=== PATIENT | male | born 1950 | race Caucasian/White ===

== ENCOUNTER 2022-05-07 05:25 | Inpatient (IN) | payer MEDICARE, BC ==
[2022-05-02 14:52] LABS: BASOPHILS % (AUTO) 0.5 % (0-1); EOSINOPHILS # (AUTO) 0.3 X10'3 (0-0.9); EOSINOPHILS % (AUTO) 3.9 % (0-6); LYMPHOCYTES # (AUTO) 2.3 X10'3 (1.1-4.8); LYMPHOCYTES % (AUTO) 28.9 % (21-51); MEAN CORPUSCULAR HEMOGLOBIN 31.3 PG (27.0-31.0); MEAN CORPUSCULAR HGB CONC 34.1 g/dL (33.0-36.5); MEAN CORPUSCULAR VOLUME 91.8 FL (78-98); MEAN PLATELET VOLUME 8.9 FL (7.4-10.4); MONOCYTES # (AUTO) 0.5 X10'3 (0-0.9); MONOCYTES % (AUTO) 5.9 % (2-12); NEUTROPHILS # (AUTO) 4.9 X10'3 (1.8-7.7); NEUTROPHILS % (AUTO) 60.8 % (42-75); PRE OP HEMATOCRIT 45.2 % (42.0-52.0); PRE OP HEMOGLOBIN 15.4 g/dL (14.0-17.9); PRE OP PLATELET COUNT 202 X10'3 (140-440); RED BLOOD COUNT 4.92 X10'6 (4.70-6.10)
[2022-05-02 15:00] LABS: ALBUMIN 3.6 G/DL (3.4-5.0); ALKALINE PHOSPHATASE 88 IU/L (46-116); BLOOD UREA NITROGEN 15 MG/DL (7-18); BUN/CREATININE RATIO 13.5 (5.4-32.0); CHLORIDE 107 MMOL/L (99-107); CREATININE 1.11 MG/DL (0.60-1.10); PRE OP ALT 27 U/L (30-65); PRE OP ANION GAP 8 (8-16); PRE OP AST 19 U/L (10-37); PRE OP BILIRUB, TOTAL 0.4 MG/DL (0.0-1.0); PRE OP GLUCOSE 117 MG/DL (70-104); PRE OP SODIUM 142 MMOL/L (135-145); TOTAL CARBON DIOXIDE 26.9 MMOL/L (24-32); TOTAL PROTEIN 7.2 G/DL (6.4-8.2); eGFR 65 ML/MIN
[~2022-05-07] VITALS: Ht 177.8 cm; Wt 104.3 kg
[~2022-05-07 05:25] MED LIST: ROSU20TA2 PO; ringers solution, lacted 1,000 ML IV SCH
[2022-05-07] MEDS ORDERED: ceFOXitin 2GM-NS 100mL ADDvant 100 ML IV ONE (05:30)
[2022-05-07] MEDS ORDERED: MALTODEXTRIN/FRUCTOSE 0.68 KCAL/ML LIQUID 296ML BOTTLE PO ONE (05:30)
[2022-05-07] MEDS ORDERED: famotidine 20mg tablet PO ONE (05:30)
[2022-05-07] MEDS ORDERED: metroNIDAZOLE-Flagyl 500mg/NS 100ML IVPB IV ONE (05:30)
--- NOTE | 2022-05-07 05:40 | NUR ---
Pt arrived to [facility] for surgery prep.
[2022-05-07] MEDS ORDERED: LIDOcaine 1% (10mg/ml) 2ml vial ONE (06:10)
[2022-05-07] MEDS ORDERED: heparin, porcine 5000 units/ml vial SQ ONE (06:30)
[2022-05-07] MEDS ORDERED: ipratropium/albuterol 3ml nebule NEB PRN (07:10)
[2022-05-07] MEDS ORDERED: LIDOCAINE 1%/EPI 1:100,000 inj. 10 ML multi-dose vial ONE (07:11)
[2022-05-07] MEDS ORDERED: BUPIVAcaine/PF 2.5 mg/ml (0.25%) 30ml vial ONE (07:11)
[2022-05-07] MEDS ORDERED: tobramycin 40mg/ml inj ONE (07:11)
[2022-05-07] MEDS ORDERED: povidone-iodine 10% ointment 1 APPLIC APPLIC TP ONE (07:11)
[2022-05-07] MEDS ORDERED: fentaNYL /PF 50mcg/ml 5ml ampule ONE (07:18)
[2022-05-07] MEDS ORDERED: rocuronium 10mg/ml inj IV ONE (07:20)
[2022-05-07] MEDS ORDERED: LIDOcaine 2% (20mg/ml) 5ml vial ONE (07:20)
[2022-05-07] MEDS ORDERED: propofol inj 0 ML IV ONE (07:20)
--- NOTE | 2022-05-07 09:00 | NUR ---
Pt was cancelled by Dr. Fairbanks. Pt and family very cooperative and agreeable to plan. IV dc'd, cath in tact upon order to cancel surgery. All belongings w/ pt upon dc to home. pt and family very thankful for their care today and state they will "be back" once they are cleared for surgery. Pt had discussion w/ anesthesia Dr. Clancy and Dr. Fairbanks and agreed that they did not want to proceed w/ surgery untill they have a better idea of pts cardiac risk. Pt and all docs and family all agreeable w/ current plan.
== END 2022-05-07 09:00 | disposition home or self-care (01) | DRG 376 ==
LOC: PAS IN 05:25
PROVIDERS: ADMIT Colon & Rectal Surgery; ATTEND Colon & Rectal Surgery
DX: C18.7 Malignant neoplasm of sigmoid colon (principal); Z53.8 Procedure and treatment not carried out for other reasons
CPT/HCPCS: 36415; 80053; 82948; 85025; 86885; 86900; 86901; 87081; 93005; 94640; 94760; J0694; J1644; J2704; J3010; J3260; J3490; J7120

== ENCOUNTER 2022-09-24 05:20 | Inpatient (IN) | payer MEDICARE, BC ==
[2022-09-18 10:52] LABS: BASOPHILS # (AUTO) 0.1 X10'3 (0-0.2); BASOPHILS % (AUTO) 0.8 % (0-1); EOSINOPHILS # (AUTO) 0.3 X10'3 (0-0.9); EOSINOPHILS % (AUTO) 3.8 % (0-6); LYMPHOCYTES # (AUTO) 2.7 X10'3 (1.1-4.8); LYMPHOCYTES % (AUTO) 29.3 % (21-51); MEAN CORPUSCULAR HEMOGLOBIN 31.4 PG (27.0-31.0); MEAN CORPUSCULAR VOLUME 92.1 FL (78-98); MEAN PLATELET VOLUME 8.4 FL (7.4-10.4); MONOCYTES # (AUTO) 0.6 X10'3 (0-0.9); MONOCYTES % (AUTO) 6.3 % (2-12); NEUTROPHILS # (AUTO) 5.4 X10'3 (1.8-7.7); NEUTROPHILS % (AUTO) 59.8 % (42-75); PRE OP HEMATOCRIT 46.6 % (42.0-52.0); PRE OP HEMOGLOBIN 15.9 g/dL (14.0-17.9); PRE OP PLATELET COUNT 207 X10'3 (140-440); RED BLOOD COUNT 5.06 X10'6 (4.70-6.10); RED CELL DISTRIBUTION WIDTH 14.7 % (11.5-14.5)
[2022-09-18 11:02] LABS: ALBUMIN 3.8 G/DL (3.4-5.0); ALKALINE PHOSPHATASE 95 IU/L (46-116); BLOOD UREA NITROGEN 12 MG/DL (7-18); BUN/CREATININE RATIO 11.5 (5.4-32.0); CALCIUM 8.9 MG/DL (8.5-10.1); CHLORIDE 107 MMOL/L (99-107); CREATININE 1.04 MG/DL (0.60-1.10); PRE OP ALT 22 U/L (30-65); PRE OP ANION GAP 7 (8-16); PRE OP AST 17 U/L (10-37); PRE OP BILIRUB, TOTAL 0.7 MG/DL (0.0-1.0); PRE OP GLUCOSE 105 MG/DL (70-104); PRE OP POTASSIUM 4.5 MMOL/L (3.4-5.1); PRE OP SODIUM 138 MMOL/L (135-145); TOTAL CARBON DIOXIDE 24.4 MMOL/L (24-32); TOTAL PROTEIN 7.5 G/DL (6.4-8.2); eGFR 70 ML/MIN
[2022-09-24] VITALS (21 sets, daily range): BP systolic 99–136; BP diastolic 53–84
[~2022-09-24] VITALS: Ht 177.8 cm; Wt 104.3 kg
[2022-09-24] MEDS ORDERED: metroNIDAZOLE-Flagyl 500mg/NS 100ML IVPB IV ONE (05:30)
[2022-09-24] MEDS ORDERED: heparin, porcine 5000 units/ml vial SQ ONE (05:30)
[2022-09-24] MEDS ORDERED: ceFOXitin 2GM-NS 100mL ADDvant 100 ML IV ONE (05:30)
[2022-09-24] MEDS ORDERED: famotidine 20mg tablet PO ONE (05:30)
[2022-09-24] MEDS ORDERED: LIDOcaine 1% (10mg/ml) 2ml vial ONE (05:31)
[2022-09-24] MEDS ORDERED: albuterol 2.5 MG/3 ML nebule NEB PRN (06:45)
[2022-09-24] MEDS ORDERED: BUPIVAcaine/PF 2.5 mg/ml (0.25%) 30ml vial ONE (06:52)
[2022-09-24] MEDS ORDERED: LIDOcaine 1% W/epiNEPHrine 1:100,000 20ml vial ONE (06:52)
[2022-09-24] MEDS ORDERED: tobramycin 40mg/ml inj ONE (06:52)
[2022-09-24] MEDS ORDERED: povidone-iodine 10% ointment 1 APPLIC APPLIC TP ONE (06:52)
[2022-09-24] MEDS ORDERED: fentaNYL /PF 50mcg/ml 5ml ampule ONE (07:32)
[2022-09-24] MEDS ORDERED: midazolam 1 mg/ML 2ml injection ONE (07:32)
[2022-09-24] MEDS ORDERED: ondansetron/PF 4mg/2ml inj ONE (07:34)
[2022-09-24] MEDS ORDERED: dexamethasone sod phosphate 4mg/ml inj. ONE (07:34)
[2022-09-24] MEDS ORDERED: rocuronium 10mg/ml inj IV ONE ×2 (07:34→09:52)
[2022-09-24] MEDS ORDERED: LIDOcaine 2% (20mg/ml) 5ml vial ONE (07:34)
[2022-09-24] MEDS ORDERED: propofol inj 20 ML IV ONE (07:34)
[2022-09-24] MEDS ORDERED: sevoflurane 250ml liquid IH ONE (07:37)
[2022-09-24] MEDS ORDERED: phenylephrine 10mg/ml inj. -priapism dosing ONE (08:23)
[2022-09-24] MEDS ORDERED: diltiazem-NS 100mg/100ml 100 ML IV SCH (08:35)
[2022-09-24] MEDS ORDERED: meperidine/PF 25mg/ml syringe IV PRN ×2 (09:40)
[2022-09-24] MEDS ORDERED: labetalol 20mg/4ml (5mg/ml) syringe IV PRN (09:40)
[2022-09-24] MEDS ORDERED: morphine 2 MG/ML inj. syringe IV PRN (09:40)
[2022-09-24] MEDS ORDERED: ringers solution, lacted 1,000 ML IV SCH (09:40)
[2022-09-24] MEDS ORDERED: ondansetron/PF 4mg/2ml inj IV PRN ×2 (09:40→12:15)
[2022-09-24] MEDS ORDERED: proCHLORperazine 10 MG/2 ml inj IV PRN (09:40)
[2022-09-24] MEDS ORDERED: morphine 4 MG/ML inj SYRINge IV PRN (09:40)
[2022-09-24] MEDS ORDERED: enalaprilat dihydrate 2.5mg/2ml vial IV PRN (09:40)
[2022-09-24] MEDS ORDERED: INDOCYANINE GREEN 25 MG/10 ML VIAL IV ONE (09:41)
[2022-09-24] MEDS ORDERED: metoprolol tartrate 1mg/ml inj IV ONE (09:43)
[2022-09-24] MEDS ORDERED: morphine 4 MG/ML inj SYRINge ONE (10:27)
[2022-09-24] MEDS ORDERED: glycopyrrolate 0.2mg/ml inj ONE (11:36)
[2022-09-24] MEDS ORDERED: neostigmine methylsulfate 1 MG/ML 10ml vial ONE (11:36)
[2022-09-24] MEDS ORDERED: acetaminophen 1,000mg/100ml IV 100 ML IV ONE (11:40)
--- NOTE | 2022-09-24 11:53 | NUR ---
Received from OR via , accompanied by Anesthesiologist SPEEDY AND OR NURSE and report given by Anesthesiolgist. PT CAME ON A CARDIZIAM DRIP DUE TO A NEW ONSET OF AFIB RIGHT BEFORE SCHEDULED SURGERY. PT HAD AN ARTLINE THAT PATTERN DUPLICATOR WAS INSTRUCTED TO D/C UPON ARRIVAL TO UNIT. WAS ALSO INSTRUCTED TO D/C CARDIZEM DRIP; PT REMAINED IN CONTROLLED A-FIB AND HEART RATE REMAINED IN THE MID 70'S TO MID 90'S. 3 LAP SITES WITH BANDAIDS AND ONE INCISION WITH ISLAND DRESSING;CDI 20G TO LEFT HAND. VSS WITH 2 LPM ON NC Addendum: 09/24/22 at 1600 by Hien Farrell RN Amended: Links added.
[2022-09-24] MEDS: meperidine/PF 25mg/ml syringe IV PRN ×2 (12:00→16:09)
[2022-09-24] MEDS: normal saline 1000ml 1,000 ML IV SCH (12:15)
[2022-09-24] MEDS ORDERED: naloxone 0.4 mg/ml inj IV PRN (12:15)
[2022-09-24] MEDS: potassium CL 20mEq in D5-1/2NS 1,000 ML IV SCH (12:15)
[2022-09-24] MEDS: HYDROmorph/NS 0.2 mg/ml PCA 100 ML IV SCH ×6 (13:33→23:00)
--- NOTE | 2022-09-24 15:33 | NUR ---
PATIENT TAKEN TO SURGICAL FLOOR ROOM WITH ALL BELONGINGS AND HOOKED UP TO ALL MONITORS IN ROOM AND REPORT GIVEN TO RN WHO HAS TAKEN OVER PATIENT CARE. Addendum: 09/24/22 at 1601 by Hien Farrell RN Amended: Links added.
--- NOTE | 2022-09-24 15:46 | NUR ---
Pt arrived to room 352, 2 nurse skin check completed, VSS, pt reoriented to [employer] pump and call light within room.
[2022-09-24] MEDS: metroNIDAZOLE-Flagyl 500mg/NS 100 ML IV SCH (16:53)
--- NOTE | 2022-09-24 17:00 | NUR ---
I have reviewed and agree with interventions, assessments, and documentation by Tabitha Guillory LVN .
[2022-09-24] MEDS: ceFOXitin inj 1,000 MG in normal saline 100ml IV soln 100 ML IV SCH (17:59)
--- NOTE | 2022-09-24 18:38 | NUR ---
Problems reprioritized. Patient report given, questions answered & plan of care reviewed with Marquez BURGESS.
[2022-09-24] MEDS: heparin, porcine 5000 units/ml vial SQ SCH (21:16)
[2022-09-24] MEDS: docusate sod 100mg capsule PO SCH (21:17)
[2022-09-24 21:46] LABS: BASOPHILS % (AUTO) 0.3 % (0-1); EOSINOPHILS % (AUTO) 0 % (0-6); HEMATOCRIT 43.9 % (42.0-52.0); HEMOGLOBIN 14.7 g/dl (14.0-17.9); LYMPHOCYTES # (AUTO) 0.7 X10'3 (1.1-4.8); LYMPHOCYTES % (AUTO) 7.1 % (21-51); MEAN CORPUSCULAR HEMOGLOBIN 31.2 PG (27.0-31.0); MEAN CORPUSCULAR HGB CONC 33.5 g/dL (33.0-36.5); MEAN PLATELET VOLUME 8.5 FL (7.4-10.4); MONOCYTES # (AUTO) 0.2 X10'3 (0-0.9); MONOCYTES % (AUTO) 2.2 % (2-12); NEUTROPHILS # (AUTO) 8.5 X10'3 (1.8-7.7); NEUTROPHILS % (AUTO) 90.4 % (42-75); PLATELET COUNT 183 X10'3 (140-440); RED BLOOD COUNT 4.72 X10'6 (4.70-6.10); RED CELL DISTRIBUTION WIDTH 14.8 % (11.5-14.5); WHITE BLOOD COUNT 9.4 X10'3 (4.5-11.0)
[2022-09-24 22:08] LABS: ALANINE AMINOTRANSFERASE 14 U/L (12-78); ALBUMIN 3.3 G/DL (3.4-5.0); ALBUMIN/GLOBULIN RATIO 0.9 (1.1-1.5); ALKALINE PHOSPHATASE 73 IU/L (46-116); ANION GAP 6 (8-16); ASPARTATE AMINO TRANSFERASE 19 U/L (10-37); BILIRUBIN,TOTAL 0.8 MG/DL (0.1-1.0); BLOOD UREA NITROGEN 14 MG/DL (7-18); BUN/CREATININE RATIO 12.1 (5.4-32.0); CALCIUM 8.6 MG/DL (8.5-10.1); CHLORIDE 105 MMOL/L (99-107); CREATININE 1.16 MG/DL (0.60-1.10); GLUCOSE 144 MG/DL (70-104); POTASSIUM 4.9 MMOL/L (3.5-5.1); SODIUM 137 MMOL/L (135-145); TOTAL CARBON DIOXIDE 25.8 MMOL/L (24-32); TOTAL PROTEIN 6.8 G/DL (6.4-8.2); eGFR 62 ML/MIN
[2022-09-25] MEDS: potassium CL 20mEq in D5-1/2NS 1,000 ML IV SCH (00:18)
[2022-09-25] MEDS: metroNIDAZOLE-Flagyl 500mg/NS 100 ML IV SCH ×3 (00:20→15:36)
[2022-09-25] MEDS: HYDROmorph/NS 0.2 mg/ml PCA 100 ML IV SCH ×8 (01:00→15:00)
[2022-09-25] MEDS: ceFOXitin inj 1,000 MG in normal saline 100ml IV soln 100 ML IV SCH (01:41)
--- NOTE | 2022-09-25 06:20 | NUR ---
Problems reprioritized. Patient report given, questions answered & plan of care reviewed with NILSON BURGESS.
--- NOTE | 2022-09-25 06:26 | NUR ---
Patient in room [facility] 352. I have received report from JENIFER Zayas and had the opportunity to ask questions and assume patient care.
[2022-09-25 06:49] VITALS: BP 121/79
[2022-09-25 07:05] LABS: BASOPHILS % (AUTO) 0.1 % (0-1); EOSINOPHILS % (AUTO) 0 % (0-6); HEMATOCRIT 43.2 % (42.0-52.0); HEMOGLOBIN 14.2 g/dl (14.0-17.9); LYMPHOCYTES # (AUTO) 1.1 X10'3 (1.1-4.8); LYMPHOCYTES % (AUTO) 9.1 % (21-51); MEAN CORPUSCULAR HEMOGLOBIN 30.7 PG (27.0-31.0); MEAN CORPUSCULAR HGB CONC 32.9 g/dL (33.0-36.5); MEAN CORPUSCULAR VOLUME 93.3 FL (78-98); MEAN PLATELET VOLUME 9.3 FL (7.4-10.4); MONOCYTES # (AUTO) 0.6 X10'3 (0-0.9); MONOCYTES % (AUTO) 4.8 % (2-12); NEUTROPHILS # (AUTO) 10.5 X10'3 (1.8-7.7); PLATELET COUNT 186 X10'3 (140-440); RED BLOOD COUNT 4.63 X10'6 (4.70-6.10); RED CELL DISTRIBUTION WIDTH 14.8 % (11.5-14.5); WHITE BLOOD COUNT 12.2 X10'3 (4.5-11.0)
[2022-09-25 07:14] LABS: ALBUMIN 3.2 G/DL (3.4-5.0); ANION GAP 7 (8-16); BLOOD UREA NITROGEN 13 MG/DL (7-18); BUN/CREATININE RATIO 11.7 (5.4-32.0); CALCIUM 8.7 MG/DL (8.5-10.1); CHLORIDE 105 MMOL/L (99-107); CREATININE 1.11 MG/DL (0.60-1.10); GLUCOSE 139 MG/DL (70-104); POTASSIUM 4.8 MMOL/L (3.5-5.1); SODIUM 137 MMOL/L (135-145); TOTAL CARBON DIOXIDE 24.8 MMOL/L (24-32); eGFR 65 ML/MIN
[2022-09-25] MEDS: docusate sod 100mg capsule PO SCH ×2 (07:42→19:38)
[2022-09-25] MEDS: heparin, porcine 5000 units/ml vial SQ SCH ×2 (07:43→19:38)
--- NOTE | 2022-09-25 10:56 | NUR ---
Fontaine catheter was dc'd by clinical nursing director Lupis and instructor Rose.
[2022-09-25 11:53] VITALS: BP 126/72
[2022-09-25] MEDS ORDERED: HYDROcodone/acetaminophen 5mg/325mg tablet PO PRN (16:20)
[2022-09-25] MEDS ORDERED: PCA WASTE DOCUMENTATION 1 MG ML MC SCH (16:55)
[2022-09-25 18:00] VITALS: BP 120/85
--- NOTE | 2022-09-25 18:10 | NUR ---
Patient in room [facility] 352. I have received report from JENIFER Bernal and had the opportunity to ask questions and assume patient care.
--- NOTE | 2022-09-25 18:16 | NUR ---
Problems reprioritized. Patient report given, questions answered & plan of care reviewed with JENIFER Guzman.
[2022-09-25 22:00] VITALS: BP 122/82
--- NOTE | 2022-09-26 06:35 | NUR ---
Patient in room [facility] 352. I have received report from JENIFER Guzman and had the opportunity to ask questions and assume patient care.
--- NOTE | 2022-09-26 06:35 | NUR ---
Problems reprioritized. Patient report given, questions answered & plan of care reviewed with JENIFER Whitaker.
[2022-09-26 06:38] VITALS: BP 129/75
[2022-09-26 06:45] LABS: BASOPHILS # (AUTO) 0.1 X10'3 (0-0.2); BASOPHILS % (AUTO) 0.7 % (0-1); EOSINOPHILS # (AUTO) 0.1 X10'3 (0-0.9); HEMATOCRIT 42.2 % (42.0-52.0); HEMOGLOBIN 14.1 g/dl (14.0-17.9); LYMPHOCYTES % (AUTO) 24.1 % (21-51); MEAN CORPUSCULAR HEMOGLOBIN 30.8 PG (27.0-31.0); MEAN CORPUSCULAR HGB CONC 33.4 g/dL (33.0-36.5); MEAN CORPUSCULAR VOLUME 92.4 FL (78-98); MEAN PLATELET VOLUME 8.7 FL (7.4-10.4); MONOCYTES # (AUTO) 0.5 X10'3 (0-0.9); NEUTROPHILS # (AUTO) 5.7 X10'3 (1.8-7.7); NEUTROPHILS % (AUTO) 68.2 % (42-75); PLATELET COUNT 178 X10'3 (140-440); RED BLOOD COUNT 4.57 X10'6 (4.70-6.10); RED CELL DISTRIBUTION WIDTH 14.7 % (11.5-14.5); WHITE BLOOD COUNT 8.3 X10'3 (4.5-11.0)
[2022-09-26 07:16] LABS: ALBUMIN 3.3 G/DL (3.4-5.0); ANION GAP 8 (8-16); BLOOD UREA NITROGEN 13 MG/DL (7-18); C-REACTIVE PROTEIN 2.11 MG/DL (0.0-0.5); CALCIUM 8.7 MG/DL (8.5-10.1); CHLORIDE 107 MMOL/L (99-107); GLUCOSE 108 MG/DL (70-104); POTASSIUM 3.7 MMOL/L (3.5-5.1); SODIUM 138 MMOL/L (135-145); TOTAL CARBON DIOXIDE 23.4 MMOL/L (24-32); eGFR 73 ML/MIN
[2022-09-26] MEDS: docusate sod 100mg capsule PO SCH (07:47)
[2022-09-26] MEDS: heparin, porcine 5000 units/ml vial SQ SCH (07:50)
[2022-09-26] MEDS: normal saline 1000ml 1,000 ML IV SCH (08:32)
--- NOTE | 2022-09-26 10:34 | NUR ---
Per Amadeo Vinson, Director of Telemetry, pt's tele monitoring has been discontinued.
--- NOTE | 2022-09-26 11:35 | NUR ---
Student documentation: I have reviewed and agree with all interventions, assessments performed and documented by Magy student nurse.
[2022-09-26] MEDS ORDERED: METO-395 PO (12:22)
--- NOTE | 2022-09-26 12:26 | NUR ---
patient refused noon vitals.
--- NOTE | 2022-09-26 13:06 | NUR ---
Discussed with patient discharge instructions and new meds. patient alert and oriented and states no questions. patient IV dc'd. patient discharged with all personal belongings and discharge packet. patient escorted out in wheelchair accompanied by axilary staff and spouse transporting home.
== END 2022-09-26 13:13 | disposition home or self-care (01) | DRG 330 ==
LOC: PAS IN 05:20 → SUR 3N 16:28
PROVIDERS: ADMIT Colon & Rectal Surgery; ATTEND Colon & Rectal Surgery
PROC: 8E0W4CZ Robotic Assisted Procedure of Trunk Region, Percutaneous Endoscopic Approach (ICD-10-PCS; 2022-09-24)
PROC: 0DTN4ZZ Resection of Sigmoid Colon, Percutaneous Endoscopic Approach (ICD-10-PCS; principal; 2022-09-24 07:37)
DX: C18.7 Malignant neoplasm of sigmoid colon (principal); K92.1 Melena; E78.5 Hyperlipidemia, unspecified; I48.91 Unspecified atrial fibrillation; F17.210 Nicotine dependence, cigarettes, uncomplicated; Z79.899 Other long term (current) drug therapy
CPT/HCPCS: 36415; 80048; 80053; 82948; 84439; 84443; 85025; 86140; 86885; 86900; 86901; 87081; 88305; 88307; A4355; A4615; A4618; A7000; G0378; J0131; J0694; J1100; J1170; J1644; J2175; J2250; J2270; J2370; J2405; J2704; J2710; J3010; J3260; J3480; J3490; J7030; J7120